=== PATIENT | male | born 1970 | race Caucasian/White ===

== ENCOUNTER → 2021-04-14 08:28 | Outpatient (CLI) | payer OTHER, SELFPAY ==
[2021-04-14 21:29] LABS: COVID19 - ORCAS (NP or Nasal) POSITIVE (Negative)
== END ==
PROVIDERS: PCP Physician Assistant; Visit Provider Physician Assistant
DX: U07.1 COVID-19 (principal); Z20.822 Contact with and (suspected) exposure to COVID-19; R05.9 Cough, unspecified
CPT/HCPCS: C9803; U0003

== ENCOUNTER → 2022-10-14 16:01 | Outpatient (CLI) | payer OTHER, SELFPAY ==
--- NOTE | 2022-10-14 16:02 | DI.MRI.S_ITS ---
PROCEDURE: MR HEAD/BRAIN WO CON INDICATIONS: unilateral weakness, left hand/arm weakness/numbness TECHNIQUE: Noncontrast axial T1 spin echo, axial T2 fast spin echo, sagittal and axial FLAIR, coronal T2 fast spin echo, axial gradient echo, axial diffusion and ADC through the brain. COMPARISON: None. FINDINGS: Image quality: Excellent. CSF Spaces: Basal cisterns are patent. No extra-axial fluid collections. Ventricles are normal in size and shape. Brain: No intracranial masses or hemorrhage. Rodriguez/white matter interface is normal. Brainstem appears normal. Diffusion-weighted images demonstrate no acute ischemic insult. No chronic ischemic insults. Normal intravascular flow voids are present. Skull and face: Calvarium has normal marrow signal. Orbits appear normal. Sinuses: Mucosal thickening in bilateral maxillary sinuses are seen. Mild mucosal thickening in bilateral ethmoid sinuses and right frontal sinus is also noted. Bilateral mastoid air cells are well aerated. IMPRESSION: No acute infarction. No acute intracranial bleed, midline shift or mass effect. Bilateral sinusitis as above. Dictated by: Uday Vargas M.D. on 10/14/2022 at 18:39 Approved by: Uday Vargas M.D. on 10/14/2022 at 18:40
[2022-10-14 17:01] LABS: Add Manual Diff / Slide Review NO; Basophils Absolute Auto 0 /uL (0-100); Basophils Percent Auto 0.7 % (0-2); Eosinophils Absolute Auto 300 /uL (0-450); Eosinophils Percent Auto 4.7 % (2-4); Hematocrit 46.7 % (41-53); Hemoglobin 16.2 g/dL (13.5-17.5); Lymphocytes Absolute Auto 1800 /uL (1100-4500); Lymphocytes Percent Auto 27.4 % (25-40); Mean Corpuscular HGB Conc 34.6 % (30-36); Mean Corpuscular Volume 89.5 fL (80-100); Monocytes Absolute Auto 500 /uL (0-900); Monocytes Percent Auto 7.9 % (3-14); Neutrophils Absolute Auto 3900 /uL (1500-7000); Neutrophils Percent Auto 59.3 % (50-75); Platelet Count 266 X10^3/uL (150-400); Red Blood Cell Count 5.22 X10^6/uL (4.5-5.9); Red Cell Distribution Width 12.9 % (11.6-14.8); White Blood Cell Count 6.6 X10^3/uL (4.5-11.0)
[2022-10-14 17:21] LABS: Alanine Aminotransferase 45 IU/L (<50); Albumin 4.7 g/dL (3.5-5.0); Albumin Globulin Ratio 1.4 (1.0-2.8); Alkaline Phosphatase 60 U/L (38-126); Aspartate Aminotransferase 34 IU/L (17-59); BUN Creatinine Ratio 17.1 (6-22); Bilirubin Total 1.5 mg/dL (0.2-1.3); Blood Urea Nitrogen 14 mg/dL (9-20); Calcium 9.5 mg/dL (8.4-10.2); Carbon Dioxide 30 mmol/L (22-32); Chloride 100 mmol/L (98-107); Cholesterol 141 mg/dL (140-199); Estimated Glomerular Filt Rate > 60 mL/min (>60); Globulin 3.3 g/dL (1.7-4.1); Glucose 95 mg/dL (70-100); HDL Cholesterol 37 mg/dL (40-60); HEMOLYSIS < 15 (0-50); LDL Cholesterol Calculated 68 mg/dL (<100); Potassium 3.8 mmol/L (3.4-5.1); Sodium 139 mmol/L (137-145); Triglycerides 182 mg/dL (35-150)
[2022-10-14 18:10] LABS: Vitamin B12 574 pg/mL (239-931)
[2022-10-15 09:30] LABS: Labcorp Hemoglobin (Hb) A1c 5.5 % (4.8-5.6)
== END ==
PROVIDERS: PCP Physician Assistant; Referring Provider Physician Assistant; Visit Provider Physician Assistant
DX: J32.8 Other chronic sinusitis (principal); R29.898 Other symptoms and signs involving the musculoskeletal system; R20.0 Anesthesia of skin; R20.2 Paresthesia of skin; Z13.1 Encounter for screening for diabetes mellitus; Z13.220 Encounter for screening for lipoid disorders
CPT/HCPCS: 36415; 70551; 80053; 80061; 82607; 83036; 85025

== ENCOUNTER → 2022-12-21 16:58 | Outpatient (CLI) | payer OTHER, SELFPAY ==
--- NOTE | 2022-12-21 16:59 | DI.MRI.S_ITS ---
PROCEDURE: MR CERVICAL SPINE WO CON INDICATIONS: Left arm weakness and numbness and tingling TECHNIQUE: Noncontrast sagittal T1 spin echo and T2 fast spin echo, sagittal STIR, foraminal oblique sagittal T2 fast spin echo, and axial gradient echo or T2 fast spin echo through the cervical spine. COMPARISON: [facility] ([place]), CR, XR CERVICAL SPINE 2V OR 3V, 12/07/2022, 8:56. FINDINGS: Image quality: Excellent. Alignment and Curvature: Straightening of the normal cervical lordosis. Bone Marrow: Marrow demonstrates normal overall signal. Spinal Cord: Visualized spinal cord has normal size and signal. No cerebellar tonsillar herniation. Paraspinous Soft Tissues: No paravertebral masses. Prevertebral soft tissues are normal in thickness. C2-C3: Normal appearance. C3-C4: Disc desiccation. No central canal stenosis. Facet and uncovertebral arthropathy. Mild bilateral neural foraminal stenosis. C4-C5: Disc desiccation. No central canal stenosis. Facet and uncovertebral arthropathy. Mild bilateral neural foraminal stenosis. C5-C6: Disc desiccation and small posterior disc osteophyte complex. Mild central canal stenosis. Facet and uncovertebral arthropathy. C6-C7: Disc desiccation and right paracentral posterior disc osteophyte complex. Mild central canal stenosis. Facet and uncovertebral arthropathy. Mild bilateral neural foraminal stenosis. C7-T1: Normal appearance. IMPRESSION: 1. Mild degenerative changes of the cervical spine with mild central canal stenosis at C5-C6 and C6-C7. 2. Mild multi-level neural foraminal stenosis as described above. Dictated by: Madhu Eaton M.D. on 12/22/2022 at 8:29 Approved by: Madhu Eaton M.D. on 12/22/2022 at 8:33
== END ==
PROVIDERS: PCP Physician Assistant; Referring Provider Physician Assistant; Visit Provider Physician Assistant
DX: M47.22 Other spondylosis with radiculopathy, cervical region (principal); M48.02 Spinal stenosis, cervical region
CPT/HCPCS: 72141

== ENCOUNTER 2023-02-03 09:29 | Day surgery (SDC) | payer OTHER, SELFPAY ==
[2023-02-03 09:49] VITALS: BP 131/84; PULSE 84; RESP 16; TEMP 36.3; O2SAT 100; BMI 28.2
[2023-02-03] MEDS: LACTATED RINGERS 1,000 ML 42 ML IV (09:57)
--- NOTE | 2023-02-03 10:10 | PM.HP.1 ---
History of Present Illness History of Present Illness Date Patient Seen: 02/03/23 Time Patient Seen: 10:10 Chief complaint: SDC Narrative: The patient presents for colorectal screening. They have never had any previous examination for such. No personal or family history of colon cancer. On further history denies any recent gastrointestinal symptoms. No nausea, vomiting, abdominal pain, loss of appetite, unexplained weight loss, change in bowel habits, or blood per rectum. PFSH Medical History Nasal polyp Social History household members: spouse Smoking Status: Never smoker alcohol intake: current Meds Home Medications and Allergies Home Medications Medication Instructions Recorded Confirmed Type No Known Home Medications 01/30/23 02/03/23 History Allergies Allergy/AdvReac Type Severity Reaction Status Date / Time No Known Drug Allergies Allergy Verified 02/03/23 09:41 Exam Vital Signs (past 8 hours): - 02/03/23 09:49 Temperature 97.3 F L Pulse Rate 84 Respiratory Rate 16 Blood Pressure 131/84 Pulse Oximetry 100 Oxygen Delivery Method Room Air Oxygen Delivery Method Room Air Narrative Exam Narrative: General adult man alert oriented no acute distress Chest nonlabored respiration Extremities warm well perfused Assessment & Plan Assessment & Plan narrative: The patient requires colorectal screening and colonoscopy is recommended. Technical details were discussed. Risks, benefits, alternatives explained. Risks including but not limited to myocardial infarction, aspiration, bleeding, pain, missed lesion, incomplete examination, need for further radiographic studies, colonic perforation, and need for major abdominal surgery were discussed. All questions were answered to their satisfaction, and they are in agreement with this plan.
--- NOTE | 2023-02-03 10:38 | P.OP.COLON_ITS ---
Operative Date/Time/Diagnoses Date of procedure: 02/03/23 Time of procedure: 10:38 Pre-op diagnosis: Colorectal screening Procedure & Clinicians Study performed: Colonoscopy Same procedure as scheduled: Yes Indications: Colorectal screening Surgeon: Jorge Luis Malik Procedure Notes Procedure in detail: The history and physical was performed/updated and the patient is ASA class is 2. The procedure was discussed in detail with the patient. Potential risks complications including infection, bleeding, missed diagnosis, perforation, need for surgery, and were explained. Their questions were answered and informed consent was obtained. Patient was brought to the procedure room and placed standard monitoring equipment. The patient's vital signs were monitored continuously throughout the entire procedure. Prior to starting time-out was performed. The patient was placed in the left lateral recumbent position. Procedural sedation was administered by anesthesia. Examination began with a thorough inspection of the perianal area there was no evidence of fissures, fistulae, external hemorrhoids or cutaneous malignancy. The colonoscopy scope was then placed into the anal canal and was advanced to the cecum, which was identified by the ileocecal valve , the appendiceal orifice and the confluence of the taenia. The scope was then slowly withdrawn examining colon thoroughly in all directions, irrigating it of any residual stool. The scope was retroflexed within the rectum The patient tolerated the procedure well. They will be discharged once criteria are met. The prep was of good/excellent quality. The withdrawl time was 7 minutes. FINDINGS * Unremarkable colon. No masses polyps or inflammation. Specimen(s): none sent Impression: Normal colonoscopy Post-procedure Recommendations: Colonoscopy in 10 years Disposition: same day surgery
[2023-02-03 10:42] VITALS: BP 99/73; PULSE 77; RESP 16; TEMP 36.3; O2SAT 97
[2023-02-03 10:45] VITALS: BP 103/71; PULSE 70; RESP 17; O2SAT 99
[2023-02-03 10:52] VITALS: BP 100/68; PULSE 71; RESP 13; TEMP 36.7; O2SAT 96
== END 2023-02-03 11:04 | disposition home or self-care (01) ==
PROVIDERS: PCP Physician Assistant; Referring Provider Surgery; Visit Provider Surgery
PROC: 0DJD8ZZ Inspection of Lower Intestinal Tract, Via Natural or Artificial Opening Endoscopic (ICD-10-PCS; CPT 45378; principal; 2023-02-03 10:30)
DX: Z12.11 Encounter for screening for malignant neoplasm of colon (principal)
CPT/HCPCS: 45378